=== PATIENT | female | born 2000 | race Caucasian/White ===

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

== ENCOUNTER 2019-04-26 09:50 | Outpatient (CLI) | payer OTHER ==
--- NOTE | 2019-04-26 12:56 | ULT ---
FOCUSED ULTRASOUND OF RIGHT BREAST: 04/26/2019 HISTORY: Evaluate areas of palpable concern within the right breast. COMPARISON: None. FINDINGS: Two areas of palpable concern are evaluated on this examination. One is at the 12 o'clock position an d one is at the 9-11 o'clock position. In both regions there is dense breast tissue noted. No mass, s hadowing or cyst. IMPRESSION: Unremarkable focused ultrasound of the right breast. POS: OFF
== END 2019-04-26 09:51 | disposition home or self-care (01) ==
LOC: BICULT 09:50
PROVIDERS: ATTEND Nurse Practitioner Family
DX: N63.10 Unspecified lump in the right breast, unspecified quadrant (principal)

== ENCOUNTER 2022-01-03 16:28 | Emergency (ER) | payer OTHER ==
[2022-01-03 17:53] LABS: #Eosinphils 0.1 thou/uL (0.0-0.7); #Monocytes 0.8 thou/uL (0.11-0.59); #Neutrophils 7.2 thou/uL (1.40-6.50); %Basophils 0.2 % (0.0-1.0); %Eosinophils 1.4 % (0.0-10.0); %Lymphocytes 19.9 % (21.0-51.0); %Monocytes 8.2 % (0.0-10.0); %Neutrophils 70.4 % (42.0-75.0); Hemoglobin 13.5 g/dL (12.0-16.0); Mean Corpuscular HGB CONC 32.5 g/dL (32.0-36.0); Mean Corpuscular Hemoglobin 31.4 pg (27.0-31.0); Mean Corpuscular Volume 96.6 fL (78.0-98.0); Platelet Count 230 thou/uL (130-400); RBC Distribution Width 11.5 % (11.5-14.5); Red Blood Cell (RBC) Count 4.29 mill/uL (4.20-5.40); White Blood Cell (WBC) Count 10.2 thou/uL (4.8-10.8)
[2022-01-03 18:02] LABS: BHCG - Serum Negative (NEGATIVE); Pregs Control Background? CLEAR/WHITE (CLR/WHITE); Pregs Control Bar Appear? YES (CONTROL BAR)
[2022-01-03 18:14] LABS: ALT (SGPT) 7 U/L (8-55); AST (SGOT) 12 U/L (5-34); Albumin 3.8 g/dL (3.5-5.0); Alkaline Phosphatase 50 U/L (40-110); Anion Gap 14 mmol/L (10-20); BUN (Urea Nitrogen) 9 mg/dL (7.0-18.7); Bilirubin, Total 0.6 mg/dL (0.2-1.2); Calc. Creatinine Clearance 0 mL/min (70-130); Calcium 9.2 mg/dL (7.8-10.44); Carbon Dioxide 23 mmol/L (22-29); Chloride 105 mmol/L (98-107); Estimated GFR 125; Globulin 3.8 g/dL (2.4-3.5); Glucose 86 mg/dL (70-105); Potassium 3.8 mmol/L (3.5-5.1); Protein, Total 7.6 g/dL (6.0-8.3); Sodium 138 mmol/L (136-145)
== END 2022-01-03 19:49 | disposition home or self-care (01) ==
LOC: ERS 16:28
DX: S06.0X0A Concussion without loss of consciousness, initial encounter (principal); U07.1 COVID-19; M41.9 Scoliosis, unspecified; W22.8XXA Striking against or struck by other objects, initial encounter; Z79.899 Other long term (current) drug therapy
CPT/HCPCS: 36415; 70450; 72125; 72128; 80053; 84703; 85025; U0003; U0005

== ENCOUNTER 2022-09-14 14:06 | Emergency (ER) | payer BC, SELFPAY ==
[2022-09-14] MEDS ORDERED: Ketorolac Tromethamine 30 MG/ML VIAL ONE (16:52)
== END 2022-09-14 17:22 | disposition home or self-care (01) ==
LOC: ERS 14:06
DX: S61.452A Open bite of left hand, initial encounter (principal); S61.451A Open bite of right hand, initial encounter; S81.851A Open bite, right lower leg, initial encounter; W55.01XA Bitten by cat, initial encounter
CPT/HCPCS: 96372; J1885